=== PATIENT | female | born 1955 ===

== ENCOUNTER 2016-06-28 00:21 | Inpatient (IN) | payer MEDICAID ==
--- NOTE | 2016-06-28 01:17 | ED PDOC ---
HPI: Psych/Substance Abuse Time Seen by Provider: 06/28/16 00:50 Chief Complaint (Nursing): Psychiatric Evaluation Chief Complaint (Provider): crisis eval History Per: Patient History/Exam Limitations: no limitations Additional History Per: Patient, EMS Additional Complaint(s): 60 y/o female brought in by EMS for crisis eval. As per EMS, patient roommate called. As per patient, she feels roommate does not want her to live there anymore, but they did not have an argument. Patient poor historian, rambles off but can be redirected. Denies acute medical or psychiatric complaints. Past Medical History Reviewed: Historical Data, Nursing Documentation, Vital Signs Vital Signs: Last Vital Signs Temp 98.7 F 06/28/16 00:39 Pulse 84 06/28/16 00:39 Resp 16 06/28/16 00:39 BP 201/104 H 06/28/16 00:39 Pulse Ox 98 06/28/16 00:39 - Medical History PMH: Anxiety - Surgical History Surgical History: No Surg Hx - Family History Family History: States: Unknown Family Hx - Home Medications Home Medications: Ambulatory Orders Medication Instructions Recorded Haloperidol [Haldol] 10 mg PO DAILY 06/28/16 - Allergies Allergies/Adverse Reactions: Allergies Allergy/AdvReac Type Severity Reaction Status Date / Time No Known Allergies Allergy Verified 06/28/16 00:41 Review of Systems ROS Statement: Except As Marked, All Systems Reviewed And Found Negative Physical Exam - Reviewed Nursing Documentation Reviewed: Yes Vital Signs Reviewed: Yes - Physical Exam Appears: Positive for: Well, Non-toxic, No Acute Distress Head Exam: Positive for: ATRAUMATIC, NORMAL INSPECTION, NORMOCEPHALIC Skin: Positive for: Normal Color Eye Exam: Positive for: Normal appearance ENT: Positive for: Normal ENT Inspection Cardiovascular/Chest: Positive for: Regular Rate, Rhythm Respiratory: Positive for: Normal Breath Sounds Gastrointestinal/Abdominal: Positive for: Normal Exam Back: Positive for: Normal Inspection Extremity: Positive for: Normal ROM Neurologic/Psych: Positive for: Alert, Oriented - Laboratory Results Result Diagrams: 06/28/16 01:44 06/28/16 01:44 - ECG O2 Sat by Pulse Oximetry: 98 Pulse Ox Interpretation: Normal - Radiology X-Ray: Viewed By Oh X-Ray Interpretation: No Acute Disease - Progress ED Course And Treament: accucheck, labs, urine, CT head, crisis eval EXAM: CT Head Without Intravenous Contrast CLINICAL HISTORY: 60 years old, female; Signs and symptoms; Altered mental status/memory loss; Additional info: AMS TECHNIQUE: Axial computed tomography images of the head/brain without intravenous contrast. This CT exam was performed using one or more of the following dose reduction techniques: automated exposure control, adjustment of the mA and/or kV according to patient size, and/or use of iterative reconstruction technique. COMPARISON: No relevant prior studies available. FINDINGS: Brain: Unremarkable. No hemorrhage. No significant white matter disease. No edema. Ventricles: Unremarkable. No ventriculomegaly. Bones/joints: Unremarkable. No acute fracture. Soft tissues: Unremarkable. Sinuses: Minimal mucosal thickening noted within the ethmoid air cells. Remaining paranasal sinuses are clear. No air-fluid levels. Mastoid air cells: Unremarkable as visualized. No mastoid effusion. IMPRESSION: No acute findings Macrobid PO dose given for UTI Clonidine PO dose given for elevated BP Patient evaluated by riprap worker; to be admitted as per Dr. Lloyd Medical Decision Making Medical Decision Making: Patient medically stable for psych admission Disposition - Clinical Impression Clinical Impression: UTI (urinary tract infection), Schizophrenia - Disposition Disposition Time: 05:18 Condition: STABLE
[2016-06-28 01:48] LABS: BASO % 0.3 % (0.0-2.0); EOS # 0.1 K/uL (0.0-0.7); EOS % 1.2 % (0.0-4.0); HEMATOCRIT 40.2 % (34.0-47.0); LYMPH # 2.4 K/uL (1.0-4.3); LYMPH % 29.3 % (20.0-40.0); MEAN CELL VOLUME 88.7 fl (81.0-99.0); MEAN CORPUSCULAR HGB CONC 32.7 g/dL (33.0-37.0); MEAN PLATELET VOLUME 9.1 fl (7.2-11.7); MONO # 0.7 K/uL (0.0-0.8); MONO % 8.1 % (0.0-10.0); NEUT # 5.1 K/uL (1.8-7.0); NEUT % 61.1 % (50.0-75.0); RED CELL DISTRIBUTION WIDTH 14.3 % (11.5-14.5); WHITE BLOOD COUNT 8.4 K/uL (4.8-10.8)
[2016-06-28 01:56] LABS: ALB/GLOB RATIO 1.2 (1.0-2.1); ALCOHOL SERUM < 10 mg/dl (0-10); ALKALINE PHOSPHATASE 130 U/L (38-126); ALT/SGPT 56 U/L (9-52); AST/SGOT 43 U/L (14-36); BILIRUBIN,TOTAL 1.4 mg/dl (0.2-1.3); BLOOD UREA NITROGEN 11 mg/dl (7-17); CALCIUM 9.1 mg/dL (8.4-10.2); CARBON DIOXIDE 25 mmol/L (22-30); CHLORIDE 105 mmol/L (98-107); GFR AFRICAN-AMERICAN > 60; GLUCOSE,RANDOM 104 mg/dL (65-105); POTASSIUM 3.6 MMOL/L (3.6-5.0); SODIUM 140 mmol/l (132-148); TOTAL PROTEIN 7.5 G/DL (6.3-8.2)
[2016-06-28 02:09] LABS: RBC URINE 31 /hpf (0-3); URINE BACTERIA RARE (<OCC); URINE BILIRUBIN NEGATIVE (NEGATIVE); URINE BLOOD SMALL (NEGATIVE); URINE COLOR YELLOW (YELLOW); URINE GLUCOSE (UA) NEG (Normal); URINE KETONE NEGATIVE (NEGATIVE); URINE LEUKOCYTE ESTERASE LARGE Leu/uL (Negative); URINE PROTEIN NEGATIVE (NEGATIVE); URINE UROBILINOGEN 0.2-1.0 mg/dL (0.2-1.0); WBC URINE 46 /hpf (0-5)
[2016-06-28] MEDS ORDERED: DiphenhydrAMINE 50 mg/ml Inj IM PRN (06:17)
[2016-06-28] MEDS ORDERED: Magnesium Hydroxide Susp 30 ml UD PO PRN (06:17)
[2016-06-28] MEDS ORDERED: Alum-Mag Hydrox-Simethicone Susp (30 mL) PO PRN (06:17)
[2016-06-28 07:45] LABS: T4 9.92 ug/dl (5.5-11.0)
[2016-06-28 07:58] LABS: THYROID STIMULATING HORMONE 1.57 mIU/ML (0.46-4.68)
--- NOTE | 2016-06-28 09:44 | CT ---
PROCEDURE: CT HEAD WITHOUT CONTRAST. HISTORY: ams COMPARISON: None available. TECHNIQUE: Axial computed tomography images were obtained through the head/brain without intravenous contrast. Radiation dose: Total exam DLP = 780.68 mGy-cm. This CT exam was performed using one or more of the following dose reduction techniques: Automated exposure control, adjustment of the mA and/or kV according to patient size, and/or use of iterative reconstruction technique. FINDINGS: HEMORRHAGE: No intracranial hemorrhage. BRAIN: No mass effect or edema. No atrophy or chronic microvascular ischemic changes. VENTRICLES: Unremarkable. No hydrocephalus. CALVARIUM: Unremarkable. PARANASAL SINUSES: Minimal mucosal thickening seen within the ethmoid air complex. MASTOID AIR CELLS: Unremarkable as visualized. No inflammatory changes. OTHER FINDINGS: None. IMPRESSION: No acute intracranial hemorrhage.
--- NOTE | 2016-06-28 11:36 | PCM.PSYCH ---
Initial Psychiatric Evaluation - Initial Psychiatric Evaluation Type of Admission: Voluntary Legal Status: Capacity Chief Complaint (in patient's own words): i am anxious Patient's Reaction to Hospitalization: cooperative History of Present Illness and Precipitating Events: seen with [place] speaking nursing home social worker and treatment team. pt referred for strange behaviors in the community. she is supposed to be taking 10mg haldol daily, but states it makes her tired. she states she does not take it regularly. she has history of psychosis- 5 previous admissions, hearing voices in her 20s. she appears to be paranoid, her thoughts are disorganized and she is not able to give a clear history of events leading to her hospitalization. apparently there is some conflict with neighbors. she states she has a psychiatrist she sees once a month at [facility]. she is not working. she denies any acute medical/financial stress Current Medications: Active Medications Generic Name Dose Route Start Last Admin Trade Name Freq PRN Reason Stop Dose Admin Acetaminophen 650 mg 06/28/16 06:17 Tylenol 325mg Tab PO Q4 PRN pain level 1-7 Al Hydrox/Mg Hydrox/Simethicone 30 ml 06/28/16 06:17 Maalox Plus 30 Ml PO Q4 PRN Dyspepsia Benztropine Mesylate 1 mg 06/28/16 22:00 Cogentin PO HS MAURA Diphenhydramine HCl 50 mg 06/28/16 06:17 Benadryl IM Q6 PRN Extrapyramidal S/S Unable PO Diphenhydramine HCl 50 mg 06/28/16 06:17 Benadryl PO Q6 PRN Extrapyramidal Symptoms Diphenhydramine HCl 50 mg 06/28/16 06:24 Benadryl PO HS PRN Sleep Haloperidol 5 mg 06/28/16 06:17 Haldol PO Q4 PRN Agitation Haloperidol 5 mg 06/28/16 17:00 Haldol PO BID MAURA Haloperidol Lactate 5 mg 06/28/16 06:17 Haldol IM Q4 PRN Agitation, Unable to Take PO Lorazepam 2 mg 06/28/16 06:17 Ativan IM Q4 PRN Anxiety/Agitation,Unable PO Lorazepam 2 mg 06/28/16 06:17 Ativan PO Q4 PRN Anxiety/Agitation Magnesium Hydroxide 30 ml 06/28/16 06:17 Milk Of Magnesia PO HS PRN Constipation Past Psychiatric History - Past Psychiatric History Previous Treatment History: Inpatient Prior Professional Help: 5 previous hospitalizations, History of Abuse: unable to assess at this time History of Family Illness: denies use of alcohol, tobacco or other illicit substances. Pertinent Medical Hx (Current Medical&Sleep Prob, Allergies): Allergies Allergy/AdvReac Type Severity Reaction Status Date / Time No Known Allergies Allergy Verified 06/28/16 00:41 Haloperidol [Haldol] 10 mg PO DAILY 06/28/16 Review of Systems - Psychiatric Psychiatric: As Per HPI Mental Status Examination - Personal Presentation Personal Presentation: Looks stated age - Affect Affect: Broad - Motor Activity Motor Activity: Calm - Reliability in Providing Information Reliability in Providing Information: Poor, due to alteration in thoughts - Speech Speech: Disorganized, Tangential - Mood Mood: Anxious - Formal Thought Process Formal Thought Process: Delusions, Paranoia, Loosening of associations - Hallucinations/Delusions Delusions: Persecution - Obsessions/Compulsions Obsessions: No Compulsions: No - Cognitive Functions Orientation: Person, Place, Time Sensorium: Alert Attention/Concentration: Attentive Abstract Thinking: [place] Judgement: Intact, as evidence by: Insight regarding need for hospitalization Memory: Recent intact, as evidence by: Ability to recall events of the day, Remote intact, as evidenced by: Abilit to recall sig. life events - Risk Risk: Suicidal (denies any plan/intent) - Strength & Assets Inventory Strength & Assets Inventory: Intelligence - Limitations Limitations: Other (non-adherence to treatment) DSM 5 DX - DSM 5 DSM 5 Diagnosis: schizophrenia, paranoid type - Recommended/Plan of Treatment Treatment Recommendations and Plan of Treatment: admit to [facility] for safety and observation gather collateral information provide supportive therapy adjust medications- restart haldol, split dose. give cogentin only at night hospitalist consult disposition planning Projected ELOS: 5-7 days Prognosis: fair - Smoking Cessation Smoking Cessation Initiated: No Reason for not providing: does not smoke
--- NOTE | 2016-06-28 13:30 | RAD ---
HISTORY: admit COMPARISON: No prior. FINDINGS: LUNGS: Poor inspiration with low lung volumes, mild crowded bronchovascular markings and mild patchy opacities both lower lung cuevas could represent some atelectasis however developing infiltrates could be excluded followup radiographs. PLEURA: No significant pleural effusion identified, no pneumothorax apparent. CARDIOVASCULAR: Normal. OSSEOUS STRUCTURES: No significant abnormalities. VISUALIZED UPPER ABDOMEN: Normal. OTHER FINDINGS: None. IMPRESSION: Poor inspiration with low lung volumes, mild crowded bronchovascular markings and mild patchy opacities both lower lung cuevas could represent some atelectasis however developing infiltrates could be excluded followup radiographs.
--- NOTE | 2016-06-28 18:51 | CARD ---
APPROVED REPORT EKG Measurement Heart [id number] <Conclusion> Normal sinus rhythm Normal ECG
--- NOTE | 2016-06-28 19:32 | CP.PCM.CON ---
History of Present Illness - History of Present Illness History of Present Illness: 60 yo female with history of psychosis admitted to psyche unit because of hearing voices. Review of Systems - Review of Systems All systems: reviewed and no additional remarkable complaints except (aside from those mentioned above, 12 point system review were negative by me) Past Patient History - Past Social History Smoking Status: Never Smoked Chewing Tobacco Use: No Cigar Use: No Alcohol: None Drugs: Denies - CARDIAC Hx Cardiac Disorders: Yes - PULMONARY Hx Tuberculosis: No - NEUROLOGICAL HX Cerebrovascular Accident: No Hx Seizures: No - HEMATOLOGICAL/ONCOLOGICAL Hx Cancer: No Hx Human Immunodeficiency Virus (HIV): No - GENITOURINARY/GYNECOLOGICAL Hx Sexually Transmitted Disorders: No - PSYCHIATRIC Hx Anxiety: Yes Hx Schizophrenia: Yes Hx Substance Use: No - SURGICAL HISTORY Hx Section: Yes Hx Hysterectomy: Yes - ANESTHESIA Hx Anesthesia: No Meds Allergies/Adverse Reactions: Allergies Allergy/AdvReac Type Severity Reaction Status Date / Time No Known Allergies Allergy Verified 06/28/16 00:41 - Medications Medications: Current Medications Acetaminophen (Tylenol 325mg Tab) 650 mg PO Q4 PRN PRN Reason: pain level 1-7 Al Hydrox/Mg Hydrox/Simethicone (Maalox Plus 30 Ml) 30 ml PO Q4 PRN PRN Reason: Dyspepsia Benztropine Mesylate (Cogentin) 1 mg PO HS MAURA Diphenhydramine HCl (Benadryl) 50 mg IM Q6 PRN PRN Reason: Extrapyramidal S/S Unable PO Diphenhydramine HCl (Benadryl) 50 mg PO Q6 PRN PRN Reason: Extrapyramidal Symptoms Diphenhydramine HCl (Benadryl) 50 mg PO HS PRN PRN Reason: Sleep Haloperidol (Haldol) 5 mg PO Q4 PRN PRN Reason: Agitation Last Admin: 06/28/16 17:52 Dose: 5 mg Haloperidol (Haldol) 5 mg PO BID MAURA Haloperidol Lactate (Haldol) 5 mg IM Q4 PRN PRN Reason: Agitation, Unable to Take PO Lorazepam (Ativan) 2 mg IM Q4 PRN PRN Reason: Anxiety/Agitation,Unable PO Lorazepam (Ativan) 2 mg PO Q4 PRN PRN Reason: Anxiety/Agitation Magnesium Hydroxide (Milk Of Magnesia) 30 ml PO HS PRN PRN Reason: Constipation Nitrofurantoin Macrocrystals (Macrobid) 100 mg PO Q12 MAURA Stop: 07/03/16 21:01 Physical Exam - Constitutional Appears: No Acute Distress - Head Exam Head Exam: ATRAUMATIC - Eye Exam Eye Exam: absent: Scleral icterus - ENT Exam ENT Exam: Mucous Membranes Moist - Neck Exam Neck exam: Negative for: Meningismus - Respiratory Exam Respiratory Exam: absent: Rhonchi, Wheezes, Respiratory Distress - Cardiovascular Exam Cardiovascular Exam: REGULAR RHYTHM, +S1, +S2 - GI/Abdominal Exam GI & Abdominal Exam: Soft. absent: Tenderness - Rectal Exam Rectal Exam: Deferred - Neurological Exam Neurological exam: Alert, Oriented x3 - Psychiatric Exam Psychiatric exam: Normal Affect - Skin Skin Exam: Dry, Intact Results - Vital Signs Recent Vital Signs: Last Vital Signs Temp 96.8 F L 06/28/16 17:00 Pulse 58 L 06/28/16 17:00 Resp 18 06/28/16 17:00 BP 146/69 06/28/16 17:00 Pulse Ox 98 06/28/16 05:18 - Labs Result Diagrams: 06/28/16 01:44 06/28/16 01:44 Labs: Laboratory Results - last 24 hr 06/28/16 06/28/16 06/28/16 07:25 07:26 07:26 Hemoglobin A1c 5.7 Triglycerides 111 Cholesterol 234 H LDL Cholesterol Direct 143 H HDL Cholesterol 58 Thyroxine (T4) 9.92 TSH 3rd Generation 1.57 RPR Nonreactive Assessment & Plan (1) Schizophrenia Status: Chronic Comment: psyche is managing (2) UTI (urinary tract infection) Status: Acute Comment: Macrobid PO BID for 5 days
--- NOTE | 2016-06-29 10:57 | PCM.PYCHPN ---
Psychiatric Progress Note - Psychiatric Progress Note Patient seen today, length of contact: discussed with team Patient Chief Complaint: i feel better Problems Identified/Issues Discussed: pt states she feels more awake. she is taking medications and she is denying medication side effects. she is still expressing goals of wanting to go back to school and go to work, which shows limited insight into her current condition. she does appear more alert than yesterday. Medication Change: No Medical Record Reviewed: Yes Mental Status Examination - Cognitive Function Orientation: Person, Place, Time Memory: Intact Attention: WNL Concentration: WNL Association: WNL Fund of Knowledge: WNL Decription of patient's judgement and insights: fair - Mood Mood: Anxious - Affect Affect: Broad - Speech Speech: Appropriate - Formal Thought Process Formal Thought Process: Delusions, Loosening of associations - Suicidal Ideation Suicidal Ideation: No Plan: pt denies suicidal or homicidal thoughts - Homicidal Ideation Homicidal Ideation: No Goal/Treatment Plan - Goal/Treatment Plan Need for Continued Stay: Remain at risks for inpatient hospitalization, Discharge may exacerbated symptoms Progress Toward Problem(s) and Goals/Treatment Plan: schizophrenia continue current treatment t/c increasing haldol at hs, but will observe on current dose as pt has not been taking encourage continued participation in groups. Estimated Date of D/C: 07/03/16 - Smoking Cessation Smoking Cessation Initiated: No
--- NOTE | 2016-06-30 13:07 | PCM.PYCHPN ---
Psychiatric Progress Note - Psychiatric Progress Note Patient seen today, length of contact: discussed with team Patient Chief Complaint: i feel better Problems Identified/Issues Discussed: pt bright, pleasant. states she if feeling more alert and her thoughts are more clear. denies any a/v hallucinations. denies medication side effects. Medication Change: No Medical Record Reviewed: Yes Mental Status Examination - Cognitive Function Orientation: Person, Place, Time Memory: Intact Attention: WNL Concentration: WNL Association: WNL Fund of Knowledge: WN Decription of patient's judgement and insights: fair - Mood Mood: Anxious - Affect Affect: Broad - Speech Speech: Appropriate - Formal Thought Process Formal Thought Process: Delusions, Loosening of associations Psychotic Thoughts and Behaviors: internally preoccupied, but less so than at admission - Suicidal Ideation Suicidal Ideation: No - Homicidal Ideation Homicidal Ideation: No Goal/Treatment Plan - Goal/Treatment Plan Need for Continued Stay: Remain at risks for inpatient hospitalization, Discharge may exacerbated symptoms Progress Toward Problem(s) and Goals/Treatment Plan: schizophrenia continue current treatment continue current dose of haldol. pt does not want to take a haldol dec after discussion with this travel writer. encourage continued participation in groups. Estimated Date of D/C: 07/03/16
[2016-06-30 16:33] VITALS: O2SAT 100
--- NOTE | 2016-07-01 09:01 | PCM.PYCHPN ---
Psychiatric Progress Note - Psychiatric Progress Note Patient seen today, length of contact: discussed with team Patient Chief Complaint: pt is still withdrawn and internally preoccupied and still questioning the meds.pt still has poor insight about her psychosis Problems Identified/Issues Discussed: pt was admitted for bizarre behavior with pschotic decompensation DSM 5 Symptoms Update: schizophrenia,paranoid Medication Change: Yes (will increase haldol) Medical Record Reviewed: Yes Mental Status Examination - Cognitive Function Orientation: Person, Place, Time Memory: Intact Attention: Poor Concentration: Poor Association: WNL Fund of Knowledge: WNL - Mood Mood: Anxious - Affect Affect: Broad - Speech Speech: Appropriate - Formal Thought Process Formal Thought Process: Hallucinations, Delusions, Loosening of associations - Suicidal Ideation Suicidal Ideation: No - Homicidal Ideation Homicidal Ideation: No Goal/Treatment Plan - Goal/Treatment Plan Need for Continued Stay: Remain at risks for inpatient hospitalization, Discharge may exacerbated symptoms Progress Toward Problem(s) and Goals/Treatment Plan: will further adjust haldol to stabilize the psychosis and engage pt in therapy and encourage compliance Estimated Date of D/C: 07/03/16
--- NOTE | 2016-07-02 15:03 | PCM.PYCHPN ---
Psychiatric Progress Note - Psychiatric Progress Note Patient seen today, length of contact: discussed with team Patient Chief Complaint: pt is still withdrawn and internally preoccupied and still questioning the meds.pt still has poor insight about her psychosis pt is still hallucinating and poor insight and poor judgement Problems Identified/Issues Discussed: pt was admitted for bizarre behavior with pschotic decompensation Medication Change: Yes (will increase haldol) Medical Record Reviewed: Yes Mental Status Examination - Cognitive Function Orientation: Person, Place, Time Memory: Intact Attention: Poor Concentration: Poor Association: WNL Fund of Knowledge: WNL - Mood Mood: Anxious - Affect Affect: Broad - Speech Speech: Appropriate - Formal Thought Process Formal Thought Process: Hallucinations, Delusions, Loosening of associations - Suicidal Ideation Suicidal Ideation: No - Homicidal Ideation Homicidal Ideation: No Goal/Treatment Plan - Goal/Treatment Plan Need for Continued Stay: Remain at risks for inpatient hospitalization, Discharge may exacerbated symptoms Progress Toward Problem(s) and Goals/Treatment Plan: will further adjust haldol to stabilize the psychosis and engage pt in therapy and encourage compliance will increase haldol to 10 mg bid and increase cogentin 1 mg bid at bedtime to stabilize the psychosis Estimated Date of D/C: 07/03/16
--- NOTE | 2016-07-03 10:07 | PCM.PYCHDC ---
Mental Status Examination - Mental Status Examination Orientation: Person, Place, Situation, Time Memory: Intact Mood: Neutral Affect: Broad Speech: Appropriate Attention: WNL Concentration: WNL Association: WNL Fund of Knowledge: WNL Formal Thought Process: No Impairment Description of patient's judgement and insight: fair Psychotic Thoughts and Behaviors: denies a/v hallucinations Suicidal Ideation: No Current Homicidal Ideation?: No Plan: pt denies any suicidal or homicidal thoughts Discharge Summary - Discharge Note Reason for Hospitalization: pt with symptoms of psychosis Psychiatric History (includes Medical, Family, Personal Hx): history of schizophrenia Consultations:: List each consultation separately and include: 1. Reason for request. 2. Findings. 3. Follow-up Consultations: seen by the hospitalist Summary of Hospital Course include:: 1. Description of specific treatment plan utilized for patients during their course of treatmen. 2. Summarize the time- course for resolution of acute symptoms and/or regressed behaviors. 3. Describe issues identified and worked on during hospitalization. 4. Describe medication utilized. 5. Describe medical problems identified and treated. 6. Reassessment of suicide risk Summary of Hospital Course: seen with [place] speaking social secretary and treatment team. pt referred for strange behaviors in the community. she is supposed to be taking 10mg haldol daily, but states it makes her tired. she states she does not take it regularly. she has history of psychosis- 5 previous admissions, hearing voices in her 20s. she appears to be paranoid, her thoughts are disorganized and she is not able to give a clear history of events leading to her hospitalization. apparently there is some conflict with neighbors. she states she has a psychiatrist she sees once a month at [facility]. she is not working. she denies any acute medical/financial stress hospital course pt was admitted to [facility] and oriented to the unit. pt placed on routine safety protocols. pt seen by the hospitalist and the treatment team. home medications were restarted and the dosages titrated up to current levels. she tolerated the medication changes and showed an improvement in her psychotic symptoms. at the time of discharge she was denying any suicidal or homicidal thoughts. she was agreeing to follow up with outpt treatment. she was offered haldol deconoate but refused and stated she would continue with oral haldol. - Final Diagnosis (DSM 5) Condition upon Discharge: STABLE DSM 5: schizophrenia Disposition: HOME/ ROUTINE Follow-up Treatment Plan: take medications as prescribed follow up with aftercare appointments as directed do not use alcohol, tobacco or other illicit substances call 911 if any suicidal or homicidal thoughts Prescriptions/Medication Reconciliation: Benztropine [Cogentin] 1 mg PO BID #60 tab Haloperidol [Haldol] 10 mg PO BID #30 - Smoking Cessation Smoking Cessation Medication prescribed: No - Antipsychotic Medications Pt discharged on 2 or more routine antipsychotic medications: No
[2016-07-03 10:32] VITALS: BP 147/82; PULSE 64; RESP 18; TEMP 97.5
== END 2016-07-03 14:41 | disposition home or self-care (01) | DRG 885 ==
LOC: H.ER 00:21 → H.ERHOLD 05:18 → H.PSYCH 06:11
PROVIDERS: ADMIT Psychiatry & Neurology Psychiatry; ATTEND Psychiatry & Neurology Psychiatry
PROC: GZHZZZZ Group Psychotherapy (ICD-10-PCS; principal; 2016-06-28)
PROC: GZ56ZZZ Individual Psychotherapy, Supportive (ICD-10-PCS; 2016-06-28)
DX: F20.0 Paranoid schizophrenia (principal); N39.0 Urinary tract infection, site not specified

== ENCOUNTER 2017-07-25 22:57 | Emergency (ER) | payer OTHER ==
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
[2017-07-25 23:40] LABS: EOS # 0.2 K/uL (0.0-0.7); EOS % 2.4 % (0.0-4.0); HEMOGLOBIN 13.3 g/dL (12.0-16.0); LYMPH # 3.6 K/uL (1.0-4.3); LYMPH % 43.1 % (20.0-40.0); MEAN CELL VOLUME 89.2 fl (81.0-99.0); MEAN CORPUSCULAR HEMOGLOBIN 29.4 pg (27.0-31.0); MEAN PLATELET VOLUME 9.4 fl (7.2-11.7); MONO # 1.1 K/uL (0.0-0.8); MONO % 13.3 % (0.0-10.0); NEUT # 3.4 K/uL (1.8-7.0); NEUT % 41.2 % (50.0-75.0); RBC 4.52 Mil/uL (3.80-5.20); RED CELL DISTRIBUTION WIDTH 14.6 % (11.5-14.5); WHITE BLOOD COUNT 8.4 K/uL (4.8-10.8)
[2017-07-26 00:26] LABS: ALBUMIN 4.1 g/dL (3.5-5.0); ALT/SGPT 51 U/L (9-52); AST/SGOT 35 U/L (14-36); BLOOD UREA NITROGEN 17 mg/dl (7-17); CALCIUM 9.5 mg/dL (8.4-10.2); GFR AFRICAN-AMERICAN > 60; GFR NON-AFRICAN AMERICAN > 60
[2017-07-26 00:27] LABS: ALB/GLOB RATIO 1.3 (1.0-2.1)
[2017-07-26 02:58] LABS: BARBITURATES, UR NEGATIVE (NEGATIVE); BENZODIAZEPINES, UR NEGATIVE (NEGATIVE); OPIATES, UR NEGATIVE (NEGATIVE); PHENCYCLIDINE, UR NEGATIVE (NEGATIVE)
[2017-07-26 02:59] LABS: SQUAMOUS EPITHIAL 2 /hpf (0-5); URINE BACTERIA RARE (<OCC); URINE BILIRUBIN NEGATIVE (NEGATIVE); URINE BLOOD SMALL (NEGATIVE); URINE CLARITY SLIGHTY-CLOUDY (Clear); URINE COLOR YELLOW (YELLOW); URINE GLUCOSE (UA) NEG (Normal); URINE LEUKOCYTE ESTERASE NEG Leu/uL (Negative); URINE PROTEIN NEGATIVE (NEGATIVE); URINE UROBILINOGEN 0.2-1.0 mg/dL (0.2-1.0)
[2017-07-26 06:17] VITALS: O2SAT 100
--- NOTE | 2017-07-26 06:46 | ED PDOC ---
- Laboratory Results Result Diagrams: 07/25/17 23:37 07/25/17 23:37 - ECG O2 Sat by Pulse Oximetry: 100 Medical Decision Making Medical Decision Makin Patient signed out from Dr. Wilfredo Ruelas to this provider pending labs and crisis eval. 0700 Patient signed out from this provider to Dr. Poly Olson pending [facility] screener evaluation. Scribe Attestation: Documented by Delphine Butt acting as a scribe for Paco Duque MD. Scribe Attestation: All medical record entries made by the Scribe were at my direction and personally dictated by me. I have reviewed the chart and agree that the record accurately reflects my personal performance of the history, physical exam, medical decision making, and the department course for this patient. I have also personally directed, reviewed, and agree with the discharge instructions and disposition. Disposition - Clinical Impression Clinical Impression: Schizophrenia - POA Present On Arrival: None - Disposition Disposition: Transfer of Care Disposition Time: 07:00 Condition: FAIR Forms: [employer] (Welsh) Patient Signed Over To: Poly Olson Handoff Comments: pending [facility] screener evaluation and final disposition
--- NOTE | 2017-07-26 07:18 | ED PDOC ---
- Laboratory Results Result Diagrams: 07/25/17 23:37 07/25/17 23:37 - ECG ECG: Positive for: Viewed By Me ECG Rhythm: Positive for: Sinus Bradycardia Rate: 55 O2 Sat by Pulse Oximetry: 100 (RA) Pulse Ox Interpretation: Normal Medical Decision Making Medical Decision Making: Time: 7:00 --Patient signed to this provider by Dr. Duque, pending [facility] screener evaluation. Time: 2:41 EKG: --Sinus braydcardia, rate: 55 bpm Time: 7:57 CXR: FINDINGS: LUNGS: No active pulmonary disease. PLEURA: No significant pleural effusion identified, no pneumothorax apparent. CARDIOVASCULAR: Normal. OSSEOUS STRUCTURES: No significant abnormalities. VISUALIZED UPPER ABDOMEN: Normal. OTHER FINDINGS: None. IMPRESSION: No interval acute cardiopulmonary disease appreciated. Time: 13:55 --Patient accepted to [facility] pending bed availability. pt resting in no distress. ---- Scribe Attestation: Documented by Devi Roper, acting as a scribe for Poly Olson MD Provider Scribe Attestation: All medical record entries made by the Scribe were at my direction and personally dictated by me. I have reviewed the chart and agree that the record accurately reflects my personal performance of the history, physical exam, medical decision making, and the department course for this patient. I have also personally directed, reviewed, and agree with the discharge instructions and disposition. Disposition - Clinical Impression Clinical Impression: Schizophrenia - POA Present On Arrival: None - Disposition Disposition: Transfer of Care Disposition Time: 15:00 Condition: FAIR Forms: [employer] (Slovenian) Patient Signed Over To: Wilfredo Ruelas
--- NOTE | 2017-07-26 07:58 | RAD ---
HISTORY: clearance COMPARISON: Chest radiograph 06/28/2016. FINDINGS: LUNGS: No active pulmonary disease. PLEURA: No significant pleural effusion identified, no pneumothorax apparent. CARDIOVASCULAR: Normal. OSSEOUS STRUCTURES: No significant abnormalities. VISUALIZED UPPER ABDOMEN: Normal. OTHER FINDINGS: None. IMPRESSION: No interval acute cardiopulmonary disease appreciated.
--- NOTE | 2017-07-26 11:52 | CARD ---
APPROVED REPORT EKG Measurement Heart [id number] <Conclusion> Sinus bradycardia Otherwise normal ECG
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
--- NOTE | 2017-07-26 18:12 | ED PDOC ---
- Laboratory Results Result Diagrams: 07/25/17 23:37 07/25/17 23:37 - ECG O2 Sat by Pulse Oximetry: 100 (RA) - Progress ED Course And Treament: 1500: Took over care form Dr. Olson. Fu on [facility] transfer. Pt. accepted and cleared already by Dr. Olson. Stable. 0000: Dr. Green to take over care. Disposition - Clinical Impression Clinical Impression: Schizophrenia - POA Present On Arrival: None - Disposition Disposition: Transfer of Care Disposition Time: 00:00 Condition: FAIR Patient Signed Over To: Mango Green
--- NOTE | 2017-07-27 00:23 | ED PDOC ---
- Laboratory Results Result Diagrams: 07/25/17 23:37 07/25/17 23:37 - ECG O2 Sat by Pulse Oximetry: 100 (RA) Medical Decision Making Medical Decision Makin Patient signed out to this provider from Dr. Ruelas pending [facility] bed availability. 0130 Patient resting comfortably. Vitals stable. 0300 Patient resting comfortably. Vitals stable. 0530 Patient resting comfortably. Vitals stable. 0700 Patient resting comfortably. Vitals stable. Patient will be signed out to Dr. East pending transfer to [facility]. A bed is available under the accepting physician Dr. Ge. Scribe Attestation: Documented by Delphine Butt acting as a scribe for Mango Green MD. Scribe Attestation: All medical record entries made by the Scribe were at my direction and personally dictated by me. I have reviewed the chart and agree that the record accurately reflects my personal performance of the history, physical exam, medical decision making, and the department course for this patient. I have also personally directed, reviewed, and agree with the discharge instructions and disposition. Disposition - Clinical Impression Clinical Impression: Schizophrenia - POA Present On Arrival: None - Disposition Disposition: Transfer of Care Disposition Time: 07:00 Condition: FAIR Forms: [employer] ([place]se) Patient Signed Over To: Marcia East Handoff Comments: pending transfer to [facility]
[2017-07-27 10:01] VITALS: BP 138/78; PULSE 69; RESP 17; TEMP 97.7
== END 2017-07-27 10:00 | disposition short-term general hospital (02) ==
LOC: H.ER 22:57
DX: F20.0 Paranoid schizophrenia (principal); Z91.14 Patient's other noncompliance with medication regimen; F17.200 Nicotine dependence, unspecified, uncomplicated
CPT/HCPCS: 71045; 80053; 80320; 80324; 80345; 80346; 80349; 80353; 80358; 80361; 81003; 83992; 85025; 93005; 99285; J1630; J2060